=== PATIENT | male | born 1960 | race Caucasian/White ===

== ENCOUNTER → 2023-09-15 | Outpatient (CLI) | payer OTHER ==
--- NOTE | 2023-09-15 16:14 | US ---
EXAMINATION TYPE: US thyroid st tissue head/neck DATE OF EXAM: 09/15/2023 COMPARISON: NONE CLINICAL INDICATION: Male, 63 years old with history of R22.1 LOCALIZED SWELLING, MASS AND LUMP, NECK ; Swelling x 1 1/2 month to lower left neck / anterior shoulder/ clavicle area; No history of injury, surgery, chemo, or radiation TECHNIQUE: Grayscale imaging of the area of the left neck in the area of concern. FINDINGS: No suspicious organizing fluid collections. There is suspected adipose tissue at patients AOC = 5.8 x 2.0 x 5.5 cm possibly representing lipoma. IMPRESSION: Area of concern suggestive of adipose tissue/lipoma. No suspicious masses. This can be c onfirmed with CT or MRI with palpable marker placement.
== END | disposition home or self-care (01) ==
LOC: RADUSWWP 14:40
PROVIDERS: ATTEND Surgery
DX: R22.1 Localized swelling, mass and lump, neck (principal)
CPT/HCPCS: 76536

== ENCOUNTER → 2023-10-22 | Outpatient (CLI) | payer OTHER ==
[2023-10-22 15:22] LABS: HCT 41.2 % (39.6-50.0); HGB 14.1 g/dL (13.0-17.0); MCH 33.4 pg (27.0-32.0); MCHC 34.2 g/dL (32.0-37.0); MCV 97.6 FL (80.0-97.0); Mean Platelet Volume 12.2 FL (9.5-12.2); NRBC Per 100 WBC 0 X 10*3/uL (0.00-0.01); Platelet Count 146 X 10*3/uL (140-440); RBC 4.22 X 10*6/uL (4.40-5.60); RDW 12.4 % (11.5-14.5); WBC 5.05 X 10*3/uL (4.50-10.00)
[2023-10-22 15:31] LABS: Blood Urea Nitrogen 13.1 mg/dL (9.0-27.0); Carbon Dioxide 25.4 mmol/L (21.6-31.8); Chloride 99 mmol/L (96-109); Potassium 3.3 mmol/L (3.5-5.5); Sodium 138 mmol/L (135-145)
== END | disposition home or self-care (01) ==
LOC: LABPAT 09:19
PROVIDERS: ATTEND Internal Medicine
DX: Z01.812 Encounter for preprocedural laboratory examination (principal); R07.9 Chest pain, unspecified
CPT/HCPCS: 80051; 82565; 84520; 85027

== ENCOUNTER → 2024-01-13 | Outpatient (CLI) | payer OTHER ==
[2024-01-13 18:05] LABS: HCT 43.1 % (39.6-50.0); HGB 14.9 g/dL (13.0-17.0); MCH 33.4 pg (27.0-32.0); MCHC 34.6 g/dL (32.0-37.0); MCV 96.6 FL (80.0-97.0); Mean Platelet Volume 11.2 FL (9.5-12.2); NRBC Per 100 WBC 0 X 10*3/uL (0.00-0.01); Platelet Count 143 X 10*3/uL (140-440); RBC 4.46 X 10*6/uL (4.40-5.60); RDW 12.9 % (11.5-14.5); WBC 5.46 X 10*3/uL (4.50-10.00)
[2024-01-13 18:24] LABS: Blood Urea Nitrogen 15.3 mg/dL (9.0-27.0); Carbon Dioxide 26.7 mmol/L (21.6-31.8); Chloride 103 mmol/L (96-109); Potassium 3.2 mmol/L (3.5-5.5); Sodium 145 mmol/L (135-145)
== END | disposition home or self-care (01) ==
LOC: LABWHC1 13:53
PROVIDERS: ATTEND Internal Medicine
DX: Z01.818 Encounter for other preprocedural examination
CPT/HCPCS: 36415; 80051; 82565; 84520; 85027

== ENCOUNTER 2024-01-21 08:32 | Day surgery (SDC) | payer MEDICARE, OTHER ==
[2024-01-16 16:04] VITALS: BMI 28.5
[~2024-01-21 08:32] MED LIST: ALPRAZolam 0.25 MG TAB PO PRN; ALPRAZolam 0.5 MG TAB PO PRN; ASPIRIN 325 MG TAB PO STA; HEPARIN SODIUM,PORCINE (1 ML) 2,500 UNIT in SODIUM CHLORIDE 0.9% 250 ML IRRIGATION PRN; HEPARIN SODIUM,PORCINE 10,000 UNIT in SODIUM CHLORIDE 0.9% 1,000 ML IRRIGATION PRN; NITROGLYCERIN SL TABS 0.4 MG TAB SUBLINGUAL PRN
[2024-01-21] MEDS: IV FLUID CONTINUATION 1,000 ML IV ONE (08:51)
[2024-01-21] MEDS: SODIUM CHLORIDE 0.9% 1,000 ML in EMPTY BAG 1 BAG IV SCH (08:51)
[2024-01-21 08:52] VITALS: RESP 18; TEMP 97.9
[2024-01-21 09:05] LABS: African American GFR (CKD) >90 (>60 ml/min/1.73 sqM); Anion Gap 12 mmol/L; Blood Urea Nitrogen 12 mg/dL (9-20); Calcium 9.9 mg/dL (8.4-10.2); Carbon Dioxide 30 mmol/L (22-30); Chloride 94 mmol/L (98-107); Glucose 122 mg/dL (74-99); Non-African American GFR(CKD) >90 (>60 ml/min/1.73 sqM); Potassium 3.3 mmol/L (3.5-5.1); Sodium 136 mmol/L (137-145)
[2024-01-21] MEDS: fentaNYL (PF) 50 MCG/ML 2 ML AMP IVP ONE ×2 (09:16→09:19)
[2024-01-21] MEDS: MIDAZOLAM 2 MG/2 ML VIAL IVP ONE ×2 (09:16→09:19)
[2024-01-21] MEDS: LIDOCAINE 1% INJ 10MG/ML (20 ML MDV) SQ ONE (09:18)
[2024-01-21] MEDS: VERAPAMIL SYRINGE (5 MG/10 ML) INTRAARTER ONE (09:19)
[2024-01-21] MEDS: HEPARIN SODIUM 1,000 UN/ML (10ML VL) IVP ONE (09:23)
[2024-01-21] MEDS: IOPAMIDOL-370 100ML BTL INJ ONE (09:41)
--- NOTE | 2024-01-21 10:08 | P.CARDCATH ---
Description of Procedure: PROCEDURES PERFORMED: Left heart catheterization, bilateral coronary angiography, ultrasound guided arterial access, iFR LAD, circumflex INDICATION: Abnormal stress test with inferior ischemia, unstable angina CONSENT:I have discussed the risks, benefits and alternative therapies for the above-mentioned procedure and for both sedation/analgesia as well as necessary blood product administration, if indicated, as they pertain to this patient. The patient has indicated understanding and acceptance of the risks and procedures discussed. PROCEDURE: After the risks, benefits and alternatives of the above mentioned procedure explained in detail with the patient, informed consent was obtained. Patient was taken to the catheterization lab and prepped and draped in usual fashion. Ultrasound guidance was used to assess for arterial access. 1% lidocaine was used to anesthetize the right radial artery. A 6-Angolan sheath was placed in the right radial artery using modified Seldinger technique and ultrasound guidance. Left coronary angiography was performed with a 5-Angolan JL 3.5 catheter and right coronary angiography was performed with a 5-Angolan FR5 catheter in various views. A 5-Angolan FR5 catheter was inserted into the left ventricle and pressure measurements were obtained. the decision was made to perform functional assessment of the LAD and circumflex. Heparin was given. A 5-Angolan FL 3.5 catheter was used to engage the left main. A 0.014 pressure wire was advanced the left main and normalized. It was then advanced 1 cm distal to the circumflex lesion and iFR was performed and was normal at 0.97. The wire was then redirected into the mid LAD, 1 cm distal to mid LAD lesion and iFR was performed and was normal at 1.0. The right radial sheath was removed and a TR band was placed with hemostasis achieved. The patient tolerated the procedure well. Patient was transported back to the post catheterization holding area in stable condition. Conscious Sedation: Patient was monitored under the direct supervision of myself for conscious sedation using Versed and fentanyl for a total duration of 19 minutes HEMODYNAMICS: Ao: 98/65 LV: 95/4, LVEPD 12 SELECTIVE CORONARY ARTERIOGRAPHY: LEFT MAIN: The left main is a large caliber vessel which bifurcates into the LAD and circumflex. There is no significant stenosis. LEFT ANTERIOR DESCENDING CORONARY ARTERY: LAD is a large caliber vessel which wraps around to the apex. There is a mid LAD 40-50% stenosis just proximal to the diagonal 1 branch and otherwise mild luminal irregularities. LEFT CIRCUMFLEX CORONARY ARTERY: Left circumflex is a moderate to large caliber vessel with a focal 40-50% tubular stenosis just proximal to a small caliber OM1 branch. RIGHT CORONARY ARTERY: The right coronary artery is a large caliber vessel which gives off a PDA and PLV branch and is the dominant vessel. There is mild to moderate calcification with 10-20% proximal and mid RCA stenosis. FINAL IMPRESSION: 1. CAD as described above including 40-50% mid LAD, 40-50% circumflex and 10- 20% RCA stenosis 2. iFR LAD and circumflex normal 3. Normal left sided filling pressures PLAN: 1. Aggressive risk factor modification per most recent ACC/AHA guidelines. 2. More aggressive cholesterol regimen. Consider antianginals for possible microvascular disease if continues to have angina-type symptoms.
[2024-01-21] MEDS: SODIUM CHLORIDE 0.9% 500 ML 500 ML IV ONE (12:00)
[2024-01-21 12:20] VITALS: BP 118/81; PULSE 58
== END 2024-01-21 13:10 | disposition home or self-care (01) ==
LOC: CATHCVL 08:32
PROVIDERS: ATTEND Internal Medicine
DX: I25.110 Atherosclerotic heart disease of native coronary artery with unstable angina pectoris (principal); I10 Essential (primary) hypertension; E78.5 Hyperlipidemia, unspecified; F10.90 Alcohol use, unspecified, uncomplicated; R61 Generalized hyperhidrosis; Z82.49 Family history of ischemic heart disease and other diseases of the circulatory system; Z86.16 Personal history of COVID-19; Z79.82 Long term (current) use of aspirin; Z79.899 Other long term (current) drug therapy
CPT/HCPCS: 93458; 93799; 80048; 99152; C1769 ×2; C1894; J2250; J2001; J3010; J1644; Q9967

== ENCOUNTER → 2024-03-09 | Outpatient (CLI) | payer OTHER ==
--- NOTE | 2024-03-09 14:22 | US ---
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 TECHNIQUE: FINDINGS: Scanned area of concern, no definite abnormalities visualized. IMPRESSION: No discrete ultrasound abnormality to correlate with clinical findings. [facility], , 03/09/2024 2:19 PM
== END | disposition home or self-care (01) ==
LOC: RADUSWWP 13:15
PROVIDERS: ATTEND Surgery
DX: E88.2 Lipomatosis, not elsewhere classified (principal)
CPT/HCPCS: 76536

== ENCOUNTER → 2024-03-11 | Outpatient (CLI) | payer OTHER ==
--- NOTE | 2024-03-11 12:13 | XR ---
EXAMINATION TYPE: XR foot complete RT DATE OF EXAM: 03/11/2024 COMPARISON: NONE CLINICAL INDICATION: Male, 63 years old with history of M79.671; TECHNIQUE: Three views are submitted. FINDINGS: The osseous structures are intact. There is no acute fracture or dislocation. Moderate first MTP j oint arthropathy. Small plantar calcaneal spur and spur. Vascular calcifications are noted. Hammertoe deformities second through fifth digit.. IMPRESSION: 1. No acute fracture or dislocation. If symptoms persist, follow-up exam in 7 to 10 days could be ob tained. 2. Calcaneal spur and moderate first MTP joint arthropathy. [facility], , 03/11/2024 12:10 PM
--- NOTE | 2024-03-11 12:14 | XR ---
EXAMINATION TYPE: XR ankle complete RT DATE OF EXAM: 03/11/2024 COMPARISON: NONE HISTORY: Pain FINDINGS: Three views of the ankle demonstrate the ankle mortise to be intact and symmetric. The joint spaces are preserved. The osseous structures are intact. Tiny spurs are seen involving the calcaneus and m edial malleolus. Vascular calcifications. IMPRESSION: 1. No definite acute fracture or dislocation, if symptoms persist follow-up study in 7 to 10 days wou ld be suggested. [facility], , 03/11/2024 12:12 PM
== END | disposition home or self-care (01) ==
LOC: RADXRMAIN 11:42
PROVIDERS: ATTEND Podiatrist Primary Podiatric Medicine
DX: M77.31 Calcaneal spur, right foot (principal); M12.871 Other specific arthropathies, not elsewhere classified, right ankle and foot; M20.41 Other hammer toe(s) (acquired), right foot